=== PATIENT | male | born 1945 | race Caucasian/White ===

== ENCOUNTER 2016-09-12 17:09 | Emergency (ER) | payer MEDICARE, BC ==
--- NOTE | 2016-09-12 17:38 | Emergency Department Record ---
History of Present Illness - General Chief Complaint: Back Pain/Injury Stated Complaint: LOW BACK PAIN Time Seen by Provider: 09/12/16 17:24 Source: Patient Mode of Arrival: Ambulatory Limitations: No limitations - History of Present Illness Initial Comments: The patient is here due to L lower back pain for 3 days off and on. The pain is sharp and stabbing at times but does not radiate to the legs. He has no pain when sitting or walking but ONLY with twisting his trunk and bending. Presently the patient is sitting on the bed pain free. He denies any CP, SOB, or AP and also denies any leg weakness, numbness, tingling or any bowel or bladder issues. The patient was lifting and bending a lot prior to the pain onset. MD Complaint: Back pain Onset/Timin -: Days(s) Similar Symptoms Previously: No Place: Home Severity scale (1-10): 5 Quality: Sharp, Stabbing Consistency: Intermittent Improves With: Immobilization, Sitting upright Worsens With: Movement, Walking, Other Context: Bending, Turning/twisting Associated Symptoms: Denies other symptoms Treatments Prior to Arrival: NSAIDS Treatment Prior to Arrival Comment:: 2 vanesaeve this AM - Related Data Home Medications Medication Instructions Recorded Confirmed Last Taken Betamethasone/Propylene Glyc 50 gm TOP BID 01/04/15 09/12/16 09/12/16 [Betamethasone Dp Aug 0.05% Crm] Losartan/Hydrochlorothiazide 1 each PO DAILY 01/04/15 09/12/16 09/12/16 [Hyzaar 100-12.5 Tablet] Omeprazole [Prilosec] 20 mg PO DAILY 01/04/15 09/12/16 09/12/16 Tamsulosin HCl [Tamsulosin HCl] 0.4 mg PO DAILY 01/04/15 09/12/16 09/12/16 Venlafaxine HCl [Venlafaxine HCl] 75 mg PO DAILY 01/04/15 09/12/16 09/12/16 Sertraline HCl [Zoloft] 50 mg PO DAILY 09/12/16 09/12/16 09/12/16 Previous Rx's Medication Instructions Recorded Acetaminop W/ Codeine 300/30Mg 1 tab PO Q6H #15 tab 09/12/16 [Tylenol #3] Allergies Allergy/AdvReac Type Severity Reaction Status Date / Time No Known Drug Allergies Allergy Verified 09/12/16 17:12 Travel Screening - Travel/Exposure Within Last 30 Days Have you traveled within the last 30 days?: No - Travel/Exposure Within Last Year Have you traveled outside the [place] in the last year?: No - Additonal Travel Details Have you been exposed to anyone with a communicable illness?: No - Travel Symptoms Symptom Screening: None Review of Systems Constitutional: Denies: Chills, Fever Eyes: Denies: Eye discharge ENT: Denies: Congestion Respiratory: Denies: Cough, Dyspnea Gastrointestinal: Denies: Abdominal pain Past Medical History - SOCIAL HISTORY Smoking Status: Former smoker Alcohol Use: Rare Drug Use: None - RESPIRATORY Hx Respiratory Disorders: No - CARDIOVASCULAR Hx Cardio Disorders: Yes Hx Hypertension: Yes - NEURO Hx Neuro Disorders: No - GI Hx GI Disorders: No - Hx Genitourinary Disorders: No - ENDOCRINE Hx Endocrine Disorders: No - MUSCULOSKELETAL Hx Musculoskeletal Disorders: No - PSYCH Hx Psych Problems: Yes Hx Anxiety: Yes - HEMATOLOGY/ONCOLOGY Hx Hematology/Oncology Disorders: No Family Medical History Any Significant Family History?: No Physical Exam - General General Appearance: Alert, Oriented x3, Cooperative, No acute distress - Head Head exam: Atraumatic, Normocephalic, Normal inspection - Eye Eye exam: Normal appearance, PERRL - Neck Neck exam: Normal inspection, Full ROM. negative: Tenderness - Respiratory Respiratory exam: Normal lung sounds bilaterally. negative: Respiratory distress - Cardiovascular Cardiovascular Exam: Regular rate, Normal rhythm, Normal heart sounds - GI/Abdominal GI/Abdominal exam: Soft, Normal bowel sounds, Distended (The patient is morbidly obese which is normal for him.). negative: Guarding, Rebound, Rigid, Tenderness - Extremities Extremities exam: Normal inspection, Full ROM, Normal capillary refill. negative: Tenderness - Back Back exam: Reports: Normal inspection, Full ROM, Other (Neg SLR bilaterally.). Denies: CVA tenderness (R), CVA tenderness (L), Muscle spasm, Paraspinal tenderness, Rash noted, Tenderness, Vertebral tenderness - Neurological Neurological exam: Alert, Normal gait (The patient is able to quickly get off the bed with no pain and walk with no difficulty.), Oriented X3, Reflexes normal. negative: Abnormal gait, Altered, Motor sensory deficit Course Vital Signs 09/12/16 17:18 Temperature 98.3 F Pulse Rate 95 H Respiratory 18 Rate Blood Pressure 153/107 Pulse Ox 95 - Reevaluation(s) Reevaluation #1: I did explain to the patient that it appears he has a muscle strain of his lower back. Presently he is pain free and is able to get up and walk with no difficulty or pain. We will add Tylenol # 3 to his home pain regimen and have him see his PCP if not better in 3-4 days. 09/12/16 17:36 Disposition Disposition: Discharge Clinical Impression: Low back pain Qualifiers: Chronicity: acute Back pain laterality: left Sciatica presence: without sciatica Qualified Code(s): M54.5 - Low back pain Disposition: Home, Self-Care Condition: (1) Good Instructions: Low Back Strain (ED) Additional Instructions: Please take your Tylenol # 3 as directed for your pain issue along with your Alleve. Please see your PCP next week for recheck and to also recheck your BP. Return to the ER for any increased pain, fever, vomiting, leg numbness, weakness or any bowel or bladder issues. Prescriptions: Acetaminop W/ Codeine 300/30Mg [Tylenol #3] 1 tab PO Q6H #15 tab Forms: Patient Portal Access Time of Disposition: 17:40
== END 2016-09-12 17:46 | disposition home or self-care (01) ==
LOC: ER 17:09
DX: M54.5 Low back pain (principal); I10 Essential (primary) hypertension; Z87.891 Personal history of nicotine dependence
CPT/HCPCS: 99282

== ENCOUNTER 2017-01-26 13:52 | Emergency (ER) | payer MEDICARE, BC ==
[2017-01-26] MEDS ORDERED: METHYLPREDNISOLONE PF 125MG/VIAL IM ONE (14:18)
[2017-01-26] MEDS ORDERED: DIPHENHYDRAMINE HCL IV 50 MG/ML VIAL IM ONE (14:18)
--- NOTE | 2017-01-26 14:24 | Emergency Department Record ---
History of Present Illness - General Chief complaint: Hives Stated complaint: POSSIBLE HIVES ON ARMS AND LEGS Time Seen by Provider: 01/26/17 14:09 Source: Patient Mode of Arrival: Ambulatory Limitations: No limitations - History of Present Illness Initial comments: pt is breaking out in 'bumps' that come and go and that itch. pt is in the process of moving MD complaint: Rash Onset/Timin -: Hour(s) Location: LUE, RUE, LLE, RLE Consistency: Now resolved, Other (except for a few) Improves with: None Worsens with: None Context: None Associated symptoms: Denies other symptoms Treatments Prior to Arrival: None - Related Data Allergies Allergy/AdvReac Type Severity Reaction Status Date / Time No Known Drug Allergies Allergy Verified 01/26/17 14:06 Travel Screening - Travel/Exposure Within Last 30 Days Have you traveled within the last 30 days?: No Review of Systems Reviewed: No additional complaints except as noted below Constitutional: Reports: As per HPI. Denies: Chills, Fever, Malaise, Night sweats, Weakness, Weight change Eyes: Reports: As per HPI. Denies: Eye discharge, Eye pain, Photophobia, Vision change ENT: Reports: As per HPI. Denies: Congestion, Dental pain, Ear pain, Epistaxis , Hearing loss, Throat pain Respiratory: Reports: As per HPI. Denies: Cough, Dyspnea, Hemoptysis, Stridor, Wheezes Cardiovascular: Reports: As per HPI. Denies: Arrhythmia, Chest pain, Dyspnea on exertion, Edema, Murmurs, Orthopnea, Palpitations, Paroxysmal nocturnal dyspnea, Rheumatic Fever, Syncope Endocrine: Reports: As per HPI. Denies: Fatigue, Heat or cold intolerance, Polydipsia, Polyuria Gastrointestinal: Reports: As per HPI. Denies: Abdominal pain, Constipation, Diarrhea, Hematemesis, Hematochezia, Melena, Nausea, Vomiting Genitourinary: Reports: As per HPI. Denies: Dysuria, Frequency, Hematuria, Incontinence, Retention, Testicular pain, Testicular mass, Urgency Musculoskeletal: Reports: As per HPI. Denies: Arthralgia, Back pain, Gout, Joint swelling, Myalgia, Neck pain Skin: Reports: As per HPI. Denies: Bruising, Change in color, Change in hair/ nails, Lesions, Pruritus, Rash Neurological: Reports: As per HPI. Denies: Abnormal gait, Confusion, Headache, Numbness, Paresthesias, Seizure, Tingling, Tremors, Vertigo, Weakness Psychiatric: Reports: As per HPI. Denies: Anxiety, Auditory hallucinations, Depression, Homicidal thoughts, Suicidal thoughts, Visual hallucinations Hematological/Lymphatic: Reports: As per HPI. Denies: Anemia, Blood Clots, Easy bleeding, Easy bruising, Swollen glands Past Medical History - SOCIAL HISTORY Smoking Status: Former smoker Alcohol Use: None Drug Use: None - RESPIRATORY Hx Respiratory Disorders: No - CARDIOVASCULAR Hx Cardio Disorders: Yes Hx Hypertension: Yes - NEURO Hx Neuro Disorders: No - GI Hx GI Disorders: Yes Hx Reflux: Yes - Hx Genitourinary Disorders: Yes Hx Bladder Problem: Yes - ENDOCRINE Hx Endocrine Disorders: No - MUSCULOSKELETAL Hx Musculoskeletal Disorders: No - PSYCH Hx Psych Problems: Yes Hx Anxiety: Yes - HEMATOLOGY/ONCOLOGY Hx Hematology/Oncology Disorders: No Family Medical History Any Significant Family History?: No Physical Exam - General General Appearance: Alert, Oriented x3, Cooperative, No acute distress - Head Head exam: Normal inspection - Eye Eye exam: Normal appearance, PERRL, EOMI Pupils: Normal accommodation - ENT ENT exam: Normal exam, Mucous membranes moist, Normal external ear exam, Normal orophraynx Ear exam: Normal external inspection. negative: External canal tenderness Nasal Exam: Normal inspection. negative: Discharge, Sinus tenderness Mouth exam: Normal external inspection, Tongue normal Teeth exam: Normal inspection. negative: Dental caries Throat exam: Normal inspection. negative: Tonsillar erythema, Tonsillar exudate - Neck Neck exam: Normal inspection, Full ROM. negative: Tenderness - Respiratory Respiratory exam: Normal lung sounds bilaterally. negative: Respiratory distress - Cardiovascular Cardiovascular Exam: Regular rate, Normal rhythm, Normal heart sounds - GI/Abdominal GI/Abdominal exam: Soft, Normal bowel sounds. negative: Tenderness - Rectal Rectal exam: Deferred - exam: Deferred - Extremities Extremities exam: Normal inspection, Full ROM, Normal capillary refill. negative: Tenderness - Back Back exam: Reports: Normal inspection, Full ROM. Denies: Muscle spasm, Rash noted, Tenderness - Neurological Neurological exam: Alert, CN II-XII intact, Normal gait, Oriented X3 - Psychiatric Psychiatric exam: Normal affect, Normal mood - Skin Skin exam: Dry, Intact, Normal color, Urticaria, Warm Distribution of rash: LUE, RLE Description of rash: Urticarial Course Vital Signs 01/26/17 13:57 Temperature 97.7 F Pulse Rate 104 H Respiratory 20 Rate Blood Pressure 154/83 Pulse Ox 97 Disposition Disposition: Discharge Clinical Impression: Urticaria Disposition: Home, Self-Care Condition: (1) Good Instructions: Urticaria (ED) Additional Instructions: follow up with family doctor. return sooner if worse. benadryl every 6 hours as needed Forms: Patient Portal Access Quality - Quality Measures Quality Measures: N/A - Blood Pressure Screening Does Patient Have Any of the Following: No Blood Pressure Classification: Pre-Hypertensive BP Reading Systolic Measurement: 154 Diastolic Measurement: 83 Screening for High Blood Pressure: < Pre-Hypertensive BP, F/U Documented > [ [id number]] Pre-Hypertensive Follow-up Interventions: Follow-up with rescreen every year.
== END 2017-01-26 15:04 | disposition home or self-care (01) ==
LOC: ER 13:52
DX: L50.9 Urticaria, unspecified (principal)
CPT/HCPCS: 96372; 99283; J1200; J2930